=== PATIENT | male | born 1955 | race Caucasian/White ===

== ENCOUNTER 2017-06-17 09:52 | Inpatient (IN) | payer OTHER ==
[2017-06-12 14:36] LABS: BASOPHILS # (AUTO) 0.1 X10'3 (0-0.2); BASOPHILS % (AUTO) 0.7 % (0-1); EOSINOPHILS # (AUTO) 0.2 X10'3 (0-0.9); EOSINOPHILS % (AUTO) 2.9 % (0-6); LYMPHOCYTES # (AUTO) 1.7 X10'3 (1.1-4.8); LYMPHOCYTES % (AUTO) 22.8 % (21-51); MEAN CORPUSCULAR HEMOGLOBIN 35.1 PG (27.0-31.0); MEAN CORPUSCULAR HGB CONC 34.7 % (33.0-36.5); MONOCYTES % (AUTO) 13.4 % (2-12); NEUTROPHILS # (AUTO) 4.5 X10'3 (1.8-7.7); NEUTROPHILS % (AUTO) 60.2 % (42-75); PRE OP HEMATOCRIT 46.7 % (42.0-52.0); PRE OP HEMOGLOBIN 16.2 g/dL (14.0-17.9); PRE OP PLATELET COUNT 112 X10'3 (140-440); RED BLOOD COUNT 4.62 X10'6 (4.70-6.10); RED CELL DISTRIBUTION WIDTH 14.3 % (11.5-14.5)
[2017-06-12 14:37] LABS: PRE OP INR 1.2 INR; PRE OP PROTIME 12.3 SECONDS (9.0-12.0)
[2017-06-12 14:41] LABS: ALBUMIN 3.6 G/DL (3.4-5.0); ALBUMIN/GLOBULIN RATIO 0.9 (1.1-1.5); ALKALINE PHOSPHATASE 193 IU/L (46-116); BLOOD UREA NITROGEN 9 MG/DL (7-18); BUN/CREATININE RATIO 11.3 (5.4-32.0); CALCIUM 9.4 MG/DL (8.5-10.1); CHLORIDE 105 MMOL/L (99-107); PRE OP ALT 72 U/L (30-65); PRE OP ANION GAP 6 (8-16); PRE OP BILIRUB, TOTAL 2.5 MG/DL (0.0-1.0); PRE OP GLUCOSE 128 MG/DL (70-104); PRE OP POTASSIUM 4.1 MMOL/L (3.4-5.1); PRE OP SODIUM 141 MMOL/L (135-145); TOTAL PROTEIN 7.5 G/DL (6.4-8.2); eGFR > 90 ML/MIN
[2017-06-12 14:43] LABS: PRE OP AST 111 U/L (10-37)
[~2017-06-17] VITALS: Ht 182.9 cm; Wt 87.1 kg
[2017-06-17] VITALS (16 sets, daily range): BP systolic 110–152; BP diastolic 62–90
[~2017-06-17 09:52] MED LIST: NAPR220C15 PO; VANCOMYCIN INJ 1000 MG in NORMAL SALINE 250ml IV.SOLN IV ONE; cefazolin/dext.iso 2gm/50ml 50 ML IV ONE; famotidine 20mg tablet PO ONE; ringers solution, lacted 1,000 ML IV SCH; tranexamic acid inj. 880 MG in normal saline 100ml IV soln 91.2 ML IV ONE
[2017-06-17] MEDS ORDERED: ROPIVAcaine 0.5% (5mg/ml) 30ml vial ONE ×2 (10:10→11:12)
[2017-06-17] MEDS ORDERED: LIDOcaine 1%/PF (10mg/ml) 5ml vial ONE (10:10)
[2017-06-17] MEDS ORDERED: PROPOFOL IV ONE (10:10)
[2017-06-17] MEDS ORDERED: ondansetron/PF 4mg/2ml inj ONE (10:10)
[2017-06-17] MEDS ORDERED: LIDOcaine 1% (10mg/ml) 2ml vial ONE (10:17)
[2017-06-17] MEDS ORDERED: ketorolac trometh. 30mg/ml inj. ONE (11:12)
[2017-06-17] MEDS ORDERED: vancomycin 1,000mg inj ONE (11:12)
[2017-06-17] MEDS ORDERED: MORPHINE SULFATE/PF 0.5 MG/ML 10ML AMPUL ONE (12:22)
[2017-06-17] MEDS ORDERED: midazolam 2 mg/2 ml injection ONE (12:22)
[2017-06-17] MEDS ORDERED: fentaNYL/PF 50MCG/1 ML 2ML syringe ONE (12:22)
[2017-06-17] MEDS ORDERED: ePHEDrine 50MG/ML INJ. ONE (12:47)
[2017-06-17] MEDS ORDERED: desflurane 240ml liquid inh. IH ONE (12:47)
[2017-06-17] MEDS ORDERED: dexamethasone sod phosphate 4mg/ml inj. ONE (12:47)
[2017-06-17] MEDS ORDERED: phenylephrine 10mg/ml inj IV ONE (12:47)
[2017-06-17] MEDS ORDERED: tranexamic acid inj. 1,000 MG in normal saline 100ml IV soln 90 ML IV ONE (13:14)
[2017-06-17] MEDS ORDERED: ringers solution, lacted 1,000 ML IV SCH (13:41)
[2017-06-17] MEDS ORDERED: proCHLORperazine 10 MG/2 ml inj IV PRN (13:45)
[2017-06-17] MEDS ORDERED: HYDROmorphone 1 mg/ml syringe IV PRN ×4 (13:45→16:25)
[2017-06-17] MEDS ORDERED: ondansetron/PF 4mg/2ml inj IV PRN ×2 (13:45→16:25)
[2017-06-17] MEDS ORDERED: fentaNYL/PF 50MCG/1 ML 2ML syringe IV PRN ×2 (13:45)
[2017-06-17] MEDS ORDERED: meperidine/PF 25mg/ml syringe IV ONE (13:45)
[2017-06-17] MEDS ORDERED: oxyCODONE IR 5mg (immed. release) tablet PO PRN (16:25)
[2017-06-17] MEDS ORDERED: acetaminophen 325mg tablet PO PRN (16:25)
[2017-06-17] MEDS ORDERED: diphenhydrAMINE 25mg capsule PO PRN (16:25)
[2017-06-17] MEDS ORDERED: bisacodyl 10mg suppository rectal RC PRN (16:25)
[2017-06-17] MEDS ORDERED: magnesium hydroxide 30ml (MOM) UD suspension PO PRN (16:25)
[2017-06-17] MEDS ORDERED: vancomycin/NS 1 GM ADD-VANTAGE 250 ML IV SCH (20:00)
[2017-06-17] MEDS: celeCOXIB 100mg capsule PO SCH (20:00)
[2017-06-17] MEDS ORDERED: tranexamic acid inj. 870 MG in normal saline 100ml IV soln 100 ML IV ONE (20:00)
[2017-06-17] MEDS: acetaminophen 325mg tablet PO SCH (21:15)
[2017-06-17] MEDS: sennosides 8.6mg tablet PO SCH (21:15)
[2017-06-17] MEDS: ketorolac tromethamine 15mg/ml inj. IV SCH (21:15)
[2017-06-18] MEDS: potassium cl 20mEq in 1/2 NS 1,000 ML IV SCH ×4 (00:22→19:09)
[2017-06-18] MEDS: ketorolac tromethamine 15mg/ml inj. IV SCH ×4 (01:04→21:11)
[2017-06-18] MEDS: cefazolin 1gm/NS 100mL 100 ML IV SCH ×2 (01:04→08:26)
[2017-06-18] MEDS: oxyCODONE IR 5mg (immed. release) tablet PO PRN ×4 (01:04→19:10)
[2017-06-18] MEDS: acetaminophen 325mg tablet PO SCH ×4 (01:05→19:10)
[2017-06-18 02:00] VITALS: BP 114/72
[2017-06-18] MEDS: diphenhydrAMINE 25mg capsule PO PRN (05:36)
[2017-06-18 06:00] VITALS: BP 122/40
[2017-06-18 07:14] LABS: BASOPHILS % (AUTO) 0.2 % (0-1); EOSINOPHILS # (AUTO) 0.1 X10'3 (0-0.9); EOSINOPHILS % (AUTO) 1.5 % (0-6); HEMATOCRIT 41.6 % (42.0-52.0); HEMOGLOBIN 14.8 g/dl (14.0-17.9); LYMPHOCYTES # (AUTO) 0.8 X10'3 (1.1-4.8); LYMPHOCYTES % (AUTO) 8.5 % (21-51); MEAN CORPUSCULAR HEMOGLOBIN 35.7 PG (27.0-31.0); MEAN CORPUSCULAR HGB CONC 35.6 % (33.0-36.5); MEAN CORPUSCULAR VOLUME 100.1 FL (78-98); MEAN PLATELET VOLUME 9.2 FL (7.4-10.4); MONOCYTES # (AUTO) 0.8 X10'3 (0-0.9); NEUTROPHILS # (AUTO) 7.3 X10'3 (1.8-7.7); NEUTROPHILS % (AUTO) 80.8 % (42-75); PLATELET COUNT 96 X10'3 (140-440); RED BLOOD COUNT 4.15 X10'6 (4.70-6.10); RED CELL DISTRIBUTION WIDTH 14.3 % (11.5-14.5)
[2017-06-18 07:36] LABS: ANION GAP 9 (8-16); CHLORIDE 102 MMOL/L (99-107); SODIUM 138 MMOL/L (135-145); TOTAL CARBON DIOXIDE 27.5 MMOL/L (24-32)
[2017-06-18 07:38] LABS: POTASSIUM 4.1 MMOL/L (3.5-5.1)
[2017-06-18] MEDS: celeCOXIB 100mg capsule PO SCH (08:25)
[2017-06-18] MEDS: aspirin 325mg tablet PO SCH (08:26)
[2017-06-18 10:00] VITALS: BP 124/77
[2017-06-18 14:00] VITALS: BP 124/73
[2017-06-18 18:30] VITALS: BP 143/55
[2017-06-18] MEDS: sennosides 8.6mg tablet PO SCH (21:11)
[2017-06-18 22:30] VITALS: BP 120/66
[2017-06-19] MEDS: potassium cl 20mEq in 1/2 NS 1,000 ML IV SCH ×2 (00:22→07:14)
[2017-06-19] MEDS: acetaminophen 325mg tablet PO SCH ×3 (02:18→13:15)
[2017-06-19] MEDS: ketorolac tromethamine 15mg/ml inj. IV SCH (02:18)
[2017-06-19] MEDS: oxyCODONE IR 5mg (immed. release) tablet PO PRN ×6 (02:18→23:47)
[2017-06-19 05:00] VITALS: BP 135/78
[2017-06-19 06:42] LABS: BASOPHILS % (AUTO) 0.1 % (0-1); EOSINOPHILS # (AUTO) 0.1 X10'3 (0-0.9); EOSINOPHILS % (AUTO) 0.8 % (0-6); HEMATOCRIT 42.2 % (42.0-52.0); HEMOGLOBIN 14.5 g/dl (14.0-17.9); LYMPHOCYTES # (AUTO) 1.4 X10'3 (1.1-4.8); LYMPHOCYTES % (AUTO) 14.7 % (21-51); MEAN CORPUSCULAR HGB CONC 34.4 % (33.0-36.5); MEAN CORPUSCULAR VOLUME 101.9 FL (78-98); MEAN PLATELET VOLUME 9.7 FL (7.4-10.4); MONOCYTES # (AUTO) 1.4 X10'3 (0-0.9); MONOCYTES % (AUTO) 14.6 % (2-12); NEUTROPHILS # (AUTO) 6.8 X10'3 (1.8-7.7); NEUTROPHILS % (AUTO) 69.8 % (42-75); PLATELET COUNT 100 X10'3 (140-440); RED BLOOD COUNT 4.14 X10'6 (4.70-6.10); RED CELL DISTRIBUTION WIDTH 14.4 % (11.5-14.5); WHITE BLOOD COUNT 9.7 X10'3 (4.5-11.0)
[2017-06-19] MEDS: aspirin 325mg tablet PO SCH (07:13)
[2017-06-19 10:02] VITALS: BP 124/69
[2017-06-19] MEDS ORDERED: acetaminophen 325mg tablet PO PRN (16:25)
[2017-06-19 18:00] VITALS: BP 133/76
[2017-06-19] MEDS: sennosides 8.6mg tablet PO SCH (19:51)
[2017-06-19 22:30] VITALS: BP 130/75
[2017-06-19] MEDS: celeCOXIB 100mg capsule PO SCH (23:47)
[2017-06-20] MEDS: oxyCODONE IR 5mg (immed. release) tablet PO PRN (03:47)
[2017-06-20] MEDS: diphenhydrAMINE 25mg capsule PO PRN (04:50)
[2017-06-20 05:00] VITALS: BP 146/93
[2017-06-20] MEDS ORDERED: oxyCODONE/APAP 10/325mg tablet PO PRN ×4 (05:15)
[2017-06-20 05:52] LABS: HEMATOCRIT 37.7 % (42.0-52.0); MEAN CORPUSCULAR HGB CONC 34.5 % (33.0-36.5); MEAN CORPUSCULAR VOLUME 101.5 FL (78-98); MEAN PLATELET VOLUME 9.6 FL (7.4-10.4); PLATELET COUNT 87 X10'3 (140-440); RED BLOOD COUNT 3.71 X10'6 (4.70-6.10); RED CELL DISTRIBUTION WIDTH 14.3 % (11.5-14.5); WHITE BLOOD COUNT 7.5 X10'3 (4.5-11.0)
[2017-06-20 06:37] LABS: ANISOCYTOSIS 1+; PLATELET ESTIMATE DECREASED; TOTAL CELLS COUNTED 100
[2017-06-20] MEDS: celeCOXIB 100mg capsule PO SCH (07:07)
[2017-06-20] MEDS: aspirin 325mg tablet PO SCH (07:07)
[2017-06-20] MEDS ORDERED: ASPI-1 PO (07:51)
[2017-06-20] MEDS ORDERED: PER10325T PO (07:51)
== END 2017-06-20 11:00 | disposition home or self-care (01) | DRG 470 ==
LOC: PAS IN 09:52 → EDSTATUS 12:00 → ORTHO 4S 17:33
PROVIDERS: ADMIT Orthopaedic Surgery; ATTEND Orthopaedic Surgery
PROC: 8E0YXBZ Computer Assisted Procedure of Lower Extremity (ICD-10-PCS; 2017-06-17)
PROC: 8E0YXCZ Robotic Assisted Procedure of Lower Extremity (ICD-10-PCS; 2017-06-17)
PROC: 0SRC0J9 Replacement of Right Knee Joint with Synthetic Substitute, Cemented, Open Approach (ICD-10-PCS; principal; 2017-06-17 12:47)
DX: M17.0 Bilateral primary osteoarthritis of knee (principal); D62 Acute posthemorrhagic anemia; D69.6 Thrombocytopenia, unspecified; R79.89 Other specified abnormal findings of blood chemistry; Z82.49 Family history of ischemic heart disease and other diseases of the circulatory system
CPT/HCPCS: 36415; 80051; 80053; 85025; 85610; 85730; 87070; 97110; 97116; 97161; 97530; 97535; A6455; A7000; C1713; C1758; C1776; J0690; J1100; J1170; J1885; J2001; J2250; J2274; J2370; J2405; J2704; J2795; J3010; J3370; J3490; J7030; J7120; Q0163

== ENCOUNTER 2018-04-21 05:08 | Day surgery (SDC) | payer OTHER ==
[2018-04-14 13:13] LABS: BASOPHILS # (AUTO) 0.1 X10'3 (0-0.2); BASOPHILS % (AUTO) 0.9 % (0-1); EOSINOPHILS # (AUTO) 0.3 X10'3 (0-0.9); LYMPHOCYTES # (AUTO) 1.8 X10'3 (1.1-4.8); LYMPHOCYTES % (AUTO) 27.9 % (21-51); MEAN CORPUSCULAR HEMOGLOBIN 35.4 PG (27.0-31.0); MEAN CORPUSCULAR VOLUME 104.1 FL (78-98); MEAN PLATELET VOLUME 8.8 FL (7.4-10.4); MONOCYTES # (AUTO) 1.2 X10'3 (0-0.9); MONOCYTES % (AUTO) 18.4 % (2-12); NEUTROPHILS # (AUTO) 3.2 X10'3 (1.8-7.7); NEUTROPHILS % (AUTO) 48.8 % (42-75); PRE OP HEMATOCRIT 44.4 % (42.0-52.0); PRE OP HEMOGLOBIN 15.1 g/dL (14.0-17.9); RED BLOOD COUNT 4.26 X10'6 (4.70-6.10); RED CELL DISTRIBUTION WIDTH 15.7 % (11.5-14.5)
[2018-04-14 13:26] LABS: PRE OP PLATELET COUNT 85 X10'3 (140-440)
[2018-04-14 13:29] LABS: ALBUMIN 3.4 G/DL (3.4-5.0); ALKALINE PHOSPHATASE 224 IU/L (46-116); BLOOD UREA NITROGEN 10 MG/DL (7-18); BUN/CREATININE RATIO 11.8 (5.4-32.0); CALCIUM 8.9 MG/DL (8.5-10.1); CHLORIDE 104 MMOL/L (99-107); CREATININE 0.85 MG/DL (0.60-1.10); PRE OP ALT 47 U/L (30-65); PRE OP ANION GAP 8 (8-16); PRE OP GLUCOSE 95 MG/DL (70-104); PRE OP POTASSIUM 3.5 MMOL/L (3.4-5.1); PRE OP SODIUM 141 MMOL/L (135-145); TOTAL CARBON DIOXIDE 28.7 MMOL/L (24-32); eGFR > 90 ML/MIN
[2018-04-14 13:31] LABS: ALBUMIN/GLOBULIN RATIO 0.9 (1.1-1.5); PRE OP AST 117 U/L (10-37); PRE OP BILIRUB, TOTAL 3.7 MG/DL (0.0-1.0)
[2018-04-21] VITALS (9 sets, daily range): BP systolic 133–173; BP diastolic 86–93
[~2018-04-21] VITALS: Ht 182.9 cm; Wt 85.0 kg
[~2018-04-21 05:08] MED LIST changes: -NAPR220C15 PO; +NO HOME MEDS; -VANCOMYCIN INJ 1000 MG in NORMAL SALINE 250ml IV.SOLN IV ONE; -cefazolin/dext.iso 2gm/50ml 50 ML IV ONE; -famotidine 20mg tablet PO ONE; -tranexamic acid inj. 880 MG in normal saline 100ml IV soln 91.2 ML IV ONE
[2018-04-21] MEDS ORDERED: famotidine 20mg tablet PO ONE (05:30)
[2018-04-21] MEDS ORDERED: LIDOcaine 1% (10mg/ml) 2ml vial ONE (06:03)
[2018-04-21] MEDS ORDERED: triamcinolone acetonide 40mg/ml inj ONE (06:43)
[2018-04-21] MEDS ORDERED: BUPIVAcaine/PF 2.5mg/ml (0.25%) 10ml vial ONE (06:43)
[2018-04-21] MEDS ORDERED: LIDOcaine 1%/PF 5ML 10 MG/ML VIAL ONE (07:04)
[2018-04-21] MEDS ORDERED: sevoflurane 250ml liquid IH ONE (07:04)
[2018-04-21] MEDS ORDERED: ROPIVAcaine 0.5% (5mg/ml) 30ml vial ONE (07:16)
[2018-04-21] MEDS ORDERED: cloNIDine hcl/PF 100mcg/ml inj ONE (07:17)
[2018-04-21] MEDS ORDERED: dexamethasone sod phosphate 4mg/ml inj. ONE (07:20)
[2018-04-21] MEDS ORDERED: midazolam 2 mg/2 ml injection ONE (07:20)
[2018-04-21] MEDS ORDERED: fentaNYL /PF 50mcg/ml 5ml ampule ONE (07:20)
[2018-04-21] MEDS ORDERED: propofol inj 20 ML IV ONE (07:21)
[2018-04-21] MEDS ORDERED: ringers solution, lacted 1,000 ML IV SCH (07:44)
[2018-04-21] MEDS ORDERED: morphine 4 MG/ML inj SYRINge IV PRN ×2 (07:45)
[2018-04-21] MEDS ORDERED: fentaNYL/PF 50MCG/1 ML 2ML syringe IV PRN ×2 (07:45)
[2018-04-21] MEDS ORDERED: labetalol 20mg/4ml (5mg/ml) syringe IV PRN (07:45)
[2018-04-21] MEDS ORDERED: ondansetron/PF 4mg/2ml inj IV PRN (07:45)
[2018-04-21] MEDS ORDERED: hydrALAZINE 20mg/ml inj. IV PRN (07:45)
[2018-04-21] MEDS ORDERED: HYDROcodone/acetaminophen 10/325mg tab PO PRN (08:20)
== END 2018-04-21 08:45 | disposition home or self-care (01) ==
LOC: PAS 05:08
PROVIDERS: ATTEND Orthopaedic Surgery
DX: M24.561 Contracture, right knee (principal); M24.661 Ankylosis, right knee; I51.7 Cardiomegaly; M17.0 Bilateral primary osteoarthritis of knee; G89.18 Other acute postprocedural pain; Z72.89 Other problems related to lifestyle; Z86.69 Personal history of other diseases of the nervous system and sense organs; Z79.891 Long term (current) use of opiate analgesic; Z96.651 Presence of right artificial knee joint; Z79.899 Other long term (current) drug therapy; Z98.890 Other specified postprocedural states
CPT/HCPCS: 27570; 36415; 80053; 85025; 93005; 93970; J0735; J1100; J2001; J2250; J2704; J3010; J3301; J3490; J2795; J7120